=== PATIENT | male | born 1965 | race Caucasian/White ===

== ENCOUNTER 2017-09-11 20:22 | Emergency (ER) | payer MEDICAID, OTHER ==
[~2017-09-11] VITALS: Ht 172.7 cm; Wt 67.0 kg
[2017-09-11 20:50] LABS: BASOPHILS # (AUTO) 0.03 x10^3/uL (0-0.1); BASOPHILS % (AUTO) 0 % (0-1); EOSINOPHILS # (AUTO) 0.37 x10^3/uL (0-0.4); EOSINOPHILS % (AUTO) 4 % (1-7); LYMPHOCYTES # (AUTO) 2.46 x10^3/uL (1-3.4); LYMPHOCYTES % (AUTO) 27 % (22-44); MD NO; MEAN CORPUSCULAR HEMOGLOBIN 30.7 pg (27.5-34.5); MEAN CORPUSCULAR HGB CONC 33.3 g/dL (33.2-36.2); MEAN CORPUSCULAR VOLUME 92.1 fL (81-97); MEAN PLATELET VOLUME 7.9 fL (7.4-10.4); MONOCYTES # (AUTO) 0.64 x10^3/uL (0.2-0.8); MONOCYTES % (AUTO) 7 % (2-9); NEUTROPHILS # (AUTO) 5.54 x10^3/uL (1.8-6.8); NEUTROPHILS % (AUTO) 61 % (42-75); PLATELET COUNT 214 x10^3/uL (130-400); RED BLOOD COUNT 4.39 x10^6/uL (4.38-5.82)
[2017-09-11 20:59] LABS: INTERNATIONAL NORMALIZED RATIO 0.96 (0.93-1.1)
[2017-09-11] MEDS ORDERED: SODIUM CHLORIDE FLUSH 10ML SYR IVF ONE (21:00)
[2017-09-11 21:03] LABS: ALANINE AMINOTRANSFERASE 25 U/L (12-78); ALBUMIN 3.5 g/dL (3.4-5.0); ANION GAP 9 mmol/L (5-15); CALCIUM 8.6 mg/dL (8.5-10.1); CHLORIDE 101 mmol/L (98-107); CREATININE 0.86 mg/dL (0.7-1.3)
[2017-09-11 21:07] LABS: ALKALINE PHOSPHATASE 123 U/L (45-117); BILIRUBIN,TOTAL 0.5 mg/dL (0.2-1.0); TOTAL PROTEIN 6.9 g/dL (6.4-8.2); TROPONIN I 0.022 ng/mL (0.000-0.045)
[2017-09-11] MEDS ORDERED: LEVO50TA5 PO (21:54)
[2017-09-11] MEDS ORDERED: METF500T4 PO (21:54)
[2017-09-11] MEDS ORDERED: POTA10TA31 PO (21:54)
[2017-09-11] MEDS ORDERED: ASPI-496 PO (21:54)
[2017-09-11] MEDS ORDERED: ASPI-614 PO (21:54)
[2017-09-11] MEDS ORDERED: SACU1TAB PO (21:54)
[2017-09-11] MEDS ORDERED: MAGN400T7 PO (21:54)
[2017-09-11] MEDS ORDERED: DIGO125T PO (21:54)
[2017-09-11] MEDS ORDERED: CARV6.2512 PO (21:54)
[2017-09-12 00:06] LABS: TROPONIN I 0.026 ng/mL (0.000-0.045)
[2017-09-12 00:59] VITALS: BP 111/92
== END 2017-09-12 01:01 | disposition home or self-care (01) ==
LOC: ED 22:35
DX: R07.2 Precordial pain (principal); I50.9 Heart failure, unspecified; Z72.9 Problem related to lifestyle, unspecified; Z87.891 Personal history of nicotine dependence; E03.9 Hypothyroidism, unspecified; E11.9 Type 2 diabetes mellitus without complications
CPT/HCPCS: 36415; 71045; 80053; 80307; 83880; 84484; 85025; 85610; 85730; 93005; 99285